=== PATIENT | male | born 1990 | race Caucasian/White ===

== ENCOUNTER 2020-12-28 20:03 | Emergency (ER) | payer OTHER ==
[~2020-12-28] VITALS: Ht 180.3 cm; Wt 77.3 kg
[2020-12-28] MEDS ORDERED: normal saline 1000ML IV soln IVB ONE ×3 (20:25→23:35)
[2020-12-28] MEDS ORDERED: mag hydrox/Alum hydrox/simeth 30ml oral suspension PO ONE (20:40)
[2020-12-28] MEDS ORDERED: pantoprazole 40 MG vial IV ONE (20:40)
[2020-12-28] MEDS ORDERED: LIDOcaine Viscous 15ml cup MM ONE (20:40)
[2020-12-28 20:43] LABS: BASOPHILS % (AUTO) 0.3 % (0-1); EOSINOPHILS % (AUTO) 0.2 % (0-6); HEMATOCRIT 40.5 % (42.0-52.0); HEMOGLOBIN 13.6 g/dl (14.0-17.9); LYMPHOCYTES # (AUTO) 0.3 X10'3 (1.1-4.8); LYMPHOCYTES % (AUTO) 11.8 % (21-51); MEAN CORPUSCULAR HEMOGLOBIN 28.9 PG (27.0-31.0); MEAN CORPUSCULAR HGB CONC 33.6 g/dL (33.0-36.5); MEAN PLATELET VOLUME 8.6 FL (7.4-10.4); NEUTROPHILS # (AUTO) 1.8 X10'3 (1.8-7.7); NEUTROPHILS % (AUTO) 86.7 % (42-75); PLATELET COUNT 189 X10'3 (140-440); RED BLOOD COUNT 4.71 X10'6 (4.70-6.10); RED CELL DISTRIBUTION WIDTH 13.8 % (11.5-14.5); WHITE BLOOD COUNT 2.1 X10'3 (4.5-11.0)
[2020-12-28 20:55] LABS: ALANINE AMINOTRANSFERASE 305 U/L (12-78); ALBUMIN 3.2 G/DL (3.4-5.0); ALBUMIN/GLOBULIN RATIO 0.9 (1.1-1.5); ALKALINE PHOSPHATASE 273 IU/L (46-116); ANION GAP 11 (8-16); ASPARTATE AMINO TRANSFERASE 713 U/L (10-37); BILIRUBIN,TOTAL 1.3 MG/DL (0.1-1.0); BLOOD UREA NITROGEN 26 MG/DL (7-18); BUN/CREATININE RATIO 14.4 (5.4-32.0); CALCIUM 8.5 MG/DL (8.5-10.1); CHLORIDE 101 MMOL/L (99-107); CREATININE 1.81 MG/DL (0.60-1.10); GLUCOSE 86 MG/DL (70-104); LIPASE 51 U/L (73-393); POTASSIUM 3.7 MMOL/L (3.5-5.1); SODIUM 136 MMOL/L (135-145); TOTAL CARBON DIOXIDE 24.2 MMOL/L (24-32); TOTAL PROTEIN 6.7 G/DL (6.4-8.2); eGFR 44 ML/MIN
--- NOTE | 2020-12-28 21:00 | NUR ---
Pt restless and resistant to care. Pt continues to remove BP cuff an O2 monitor
[2020-12-28 21:08] LABS: TOTAL CELLS COUNTED 100
[2020-12-28 21:09] LABS: PLATELET ESTIMATE NORMAL
[2020-12-28 21:10] LABS: GIANT PLATELET FEW
[2020-12-28] MEDS ORDERED: PANT-47 PO (23:06)
[2020-12-28] MEDS ORDERED: ONDA4TAB6 PO (23:06)
[2020-12-28] MEDS ORDERED: ceFOXitin 1 GM/D5W 50mL IVPB 1,000 GM in normal saline 100ml IV soln 100 ML IV ONE (23:10)
[2020-12-28] MEDS ORDERED: ceFOXitin inj 1,000 MG in normal saline 100ml IV soln 100 ML IV ONE (23:10)
--- NOTE | 2020-12-28 23:51 | NUR ---
pt pulled off his monitoring, all was put back on
[2020-12-29] MEDS ORDERED: NO HOME MEDS (00:19)
[2020-12-29] MEDS ORDERED: mag hydrox/Alum hydrox/simeth 30ml oral suspension PO PRN (00:40)
[2020-12-29] MEDS ORDERED: morphine 2 MG/ML inj. syringe IV PRN (00:40)
[2020-12-29] MEDS ORDERED: acetaminophen 325mg tablet PO PRN (00:40)
[2020-12-29] MEDS ORDERED: potassium Cl 40MEQ/1/2NS 520ml 520 ML IV PRN ×2 (00:40)
[2020-12-29] MEDS ORDERED: normal saline 1000ml 1,000 ML IV SCH (00:40)
[2020-12-29] MEDS ORDERED: magnesium hydroxide 30ml (MOM) UD suspension PO PRN (00:40)
[2020-12-29] MEDS ORDERED: potassium Cl 20 mEq SR tablet PO PRN ×2 (00:40)
[2020-12-29] MEDS ORDERED: ondansetron/PF 4mg/2ml inj IV PRN (00:40)
--- NOTE | 2020-12-29 01:10 | NUR ---
DR JONES NOTIFIED OF BP, ORDER TO GIVE 500 ML IVF BOLUS. PT THREATENING TO LEAVE AMA IF "YOU DONT CLOSE THE DOOR." I TOLD HIM WE HAVE TO KEEP THE DOOR OPEN TO SEE BP
[2020-12-29] MEDS ORDERED: normal saline 1000ML IV soln IVB ONE (01:15)
[2020-12-29 01:49] LABS: URINE AMPHETAMINE SCREEN POSITIVE (Neg); URINE BARBITUATE SCREEN NEGATIVE (Neg); URINE BENZODIAZEPINES SCREEN NEGATIVE (Neg); URINE CANNABINOID SCREEN POSITIVE (Neg); URINE COCAINE SCREEN NEGATIVE (Neg); URINE METHADONE SCREEN POSITIVE (Neg); URINE OPIATE SCREEN POSITIVE (Neg); URINE PHENCYCLIDINE SCREEN NEGATIVE (Neg)
[2020-12-29 01:54] LABS: CLARITY,URINE CLEAR (Clear); COLOR,URINE YELLOW (Yellow); GLUCOSE, URINE NEGATIVE (Neg); KETONES,URINE TRACE mg/dl (Neg); LEUKOCYTE ESTERASE ,URINE NEGATIVE (Neg); NITRITES, URINE NEGATIVE (Neg); OCCULT BLOOD,URINE NEGATIVE (Neg); PROTEIN,URINE NEGATIVE (Neg)
[2020-12-29 02:01] LABS: PARTIAL THROMBOPLASTIN TIME 21 SECONDS (22-32)
--- NOTE | 2020-12-29 02:04 | NUR ---
DR JONES NOTIFIED OF BP, NO NEW ORDERS, REPORTS TO "KEEP AN EYE ON IT." PT ALERT AND ORIENTED, THREATENS TO LEAVE AMA EVERY TIME HIS BP IS CHECKED
[2020-12-29 02:09] LABS: UA COLLECTION TYPE CLN CATCH MIDSTREAM
[2020-12-29 02:29] VITALS: BP 90/46
[2020-12-29] MEDS ORDERED: ceFOXitin inj 1,000 MG in normal saline 100ml IV soln 100 ML IV SCH (08:00)
[2020-12-29] MEDS ORDERED: K and/or MAG REPLACEMENT MC SCH (08:00)
--- NOTE | 2020-12-29 11:15 | NUR ---
PAGE SENT TO DR. BAILEY REGARDING PATIENT DESIRE TO LEAVE AMA PAGER ID: [phone] MESSAGE: ER BED 3, C.D. IS WANTING TO LEAVE AMA. PATIENT IS FEELING LIKE HE IS WITHDRAWING FROM DRUGS, AGITATED, AND JUST WANTS TO LEAVE. PLEASE CALL [facility], [phone]
[2020-12-30 18:08] LABS: HEPATITIS C ANTIBODY >11.0 s/co ratio (0.0-0.9)
[2021-01-02 14:45] LABS: HIV-1 RNA by PCR <20 copies/mL (.)
== END 2020-12-29 16:14 | disposition left against medical advice (07) ==
LOC: ER 20:03 → ED HOLD 12-29 00:40 → UNDOADMIN 12-29 00:40 → UNDODISIN 12-29 16:10
DX: K81.9 Cholecystitis, unspecified (principal); Z20.822 Contact with and (suspected) exposure to COVID-19; R10.13 Epigastric pain; F11.90 Opioid use, unspecified, uncomplicated
CPT/HCPCS: 36415; 76700; 80053; 80305; 81003; 83690; 84145; 85007; 85025; 85610; 85730; 86705; 86706; 86803; 86885; 86900; 86901; 87535; 87635; 96361; 96365; 96366; 96375; 99285; C9113; J0694; J7030; 96367; 96374; G0378